=== PATIENT | male | born 1940 | race Caucasian/White ===

== ENCOUNTER 2018-09-28 18:51 | Emergency (ER) | payer MEDICARE, OTHER ==
--- NOTE | 2018-09-28 19:05 | ED Physician Documentation ---
Fall - HISTORIAN Historian: patient - HPI Stated Complaint: fell at long-term - was non responsive Chief Complaint: Fall Onset: just prior to arrival Where: home Associated Symptoms:: prolonged (minutes) (2 daughter thinks ) Location of Pain/Injury: head, face Injury to Right Extremity: none Injury to Left Extremity: none Further Comments: yes (She states he is on hospice due to dementia and she is worried he has a head injury after fall at long-term and she did not witness the fall but they heard a loud noise and he was on the floor non responsive for what she feels was 1.5 to 2 min and then when he did wake she feels he is less responsive.) - ROS CONST: no problems - PAST HX Past History: other (dementia ) Immunizations: UTD Allergies/Adverse Reactions: Allergies Allergy/AdvReac Type Severity Reaction Status Date / Time No Known Allergies Allergy Verified 09/28/18 19:40 Home Medications: Ambulatory Orders Medication Instructions Recorded Bisacodyl [Women's Laxative] 5 mg PO BID PRN 09/28/18 Haloperidol Lactate [Haldol] 5 mg PO PM 09/28/18 Hyoscyamine Sulfate [Anaspaz] 2 tab PO Q1 PRN 09/28/18 LORazepam [Ativan] 0.5 mg PO Q1 PRN 09/28/18 LORazepam [Ativan] 0.5 tab PO BID 09/28/18 Morphine Sulfate 5 ml PO Q1 PRN 09/28/18 Nutritional Supplement [Resource 30 ml PO TID 09/28/18 2.0] Valproic Acid (As Sodium Salt) 5 ml PO BID 09/28/18 [Valproic Acid] fentaNYL 12 MCG [Duragesic] 1 patch TOP Q72 09/28/18 - SOCIAL HX Smoking History: non-smoker Alcohol Use: none Drug Use: none - FAMILY HX Family History: none - REVIEWED ASSESSMENTS Nursing Assessment Reviewed: Yes Vitals Reviewed: Yes Procedures Wound Location: head Wound's Depth, Shape: superficial Wound Explored: clean Wound Repaired With: steri-strips, Dermabond (2 cm lac on left side of scalp ) Progress - Progress Progress: 2000: discussed read with radiologist DG 2001: Discussed results with daughter - hospice nurse at bedside. She would like time to discuss options. DG 2009: Daughter would like to take pt home to long-term. Hospice nurse is aware and orders are in place. They are agreeable to him returning. DG 2011: Daughter is asking for him to have pain med DG 2029: dermabond applied to laceration - full body inventory for any other possible injuries - nothing discovered DG ED Results Lab/Radiology - Orders Orders: ED Orders Category Date Time Status CT BRAIN W/O CONTRAST Stat Exams 09/28/[address] C-SPINE W/O CONTRAST Stat Exams 09/28/[address] MAXILLOFACIAL W/O DYE Stat Exams 09/28/18 Ordered CBC/PLATELET/DIFF Stat Lab 09/28/18 18:53 Ordered CMP Stat Lab 09/28/18 18:53 Ordered PT-INR Routine Lab 09/28/18 Ordered Fall Physical Exam - Physical Exam General Appearance: no acute distress, alert Head: trauma (facial swelling and bruise ) Neck: non-tender Eye: unequal pupils Resp/CVS: chest non-tender, breath sounds nml, no resp. distress, heart sounds nml. No: rib tenderness Abdomen: soft, no distension Neuro: other (alert and not appropriate verbal response which daughter states is normal although at times he does talk ) Skin: color nml Back: normal inspection Extremities: atraumatic Joint: painful (with attempt to stand ) Discharge Clincal Impression: Subdural bleeding Referrals: Dennis Parker DO [Primary Care Provider] - 2 Days Comments: He will return to long-term with hospice over sight DG Condition: Serious Disposition: 01 HOME, SELF-CARE Decision to Admit: NO Date of Decison to Admit: 09/28/18 Decision Time: 20:30
[2018-09-28] MEDS: MORPHINE SULFATE 10 MG/ML VIAL IV ONE (20:52)
[2018-09-28] MEDS: MORPHINE SULFATE 4 MG/ML VIAL ONE (20:53)
[2018-09-28 21:11] VITALS: BP 104/60
--- NOTE | 2018-09-29 05:37 | Diagnostic Imaging Report ---
TATIANA NESS [facility] [address] [facility] [address] [place], [place]. [address] Report Submission Date: Sep 28, 2018 8:05:03 PM CDT Patient Study Name: MANDEEP MAURER Date: Sep 28, 2018 7:06:24 PM CDT Modality Type: CT Gender: M Description: CT C-SPINE W/O CONTRAS : 44 Institution: [facility] Physician: TATIANA NESS EXAMINATION: CT C-SPINE W/O CONTRAS HISTORY: FALL. UNRESPONSIVE TECHNIQUE: CT of the cervical spine was performed without contrast according to standard protocol. COMPARISON: None FINDINGS: The alignment is normal. Vertebral bodies are normal in height without evidence of acute fracture. The craniocervical junction is normal. 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 There is mild spinal canal stenosis at C4/C5. 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 There is paraseptal emphysema in the lung apices. Please see the separate reports from the concurrent CT head and CT face for additional findings. IMPRESSION: No evidence of acute fracture in the cervical spine. Electronically signed on Sep 28, 2018 8:05:03 PM CDT by: Erik MAYO
--- NOTE | 2018-09-29 05:37 | Diagnostic Imaging Report ---
TATIANA NESS [facility] [address] [facility] [address] [place], [place]. [address] Report Submission Date: Sep 28, 2018 8:01:03 PM CDT Patient Study Name: MANDEEP MAURER Date: Sep 28, 2018 7:02:40 PM CDT Modality Type: CT Gender: M Description: CT MAXILLOFACIAL W/O D : 44 Institution: [facility] Physician: TATIANA NESS EXAMINATION: CT MAXILLOFACIAL W/O D HISTORY: FALL. UNRESPONSIVE TECHNIQUE: CT of the maxillofacial bones, orbits, and paranasal sinuses was performed without contrast according to standard protocol. COMPARISON: None FINDINGS: There is a comminuted fracture of the left zygomatic arch. There are additional fractures of the left orbital roof, inferior orbital rim/wall, and anterior and posterolateral saeed of the left maxillary sinus, consistent with a zygomaticomaxillary complex type fracture. There is a left nasal bone fracture. There is blood in the left maxillary sinus. There is left periorbital soft tissue swelling. There is no evidence of globe rupture or retrobulbar hematoma. The hard palate, mandible, and temporomandibular joints appear normal. The mastoid air cells are clear. Please see the separate report from the concurrent CT head for intracranial findings. IMPRESSION: 1. Left zygomaticomaxillary complex type fracture without evidence of globe rupture or retrobulbar hematoma. 2. Left nasal bone fracture. Electronically signed on Sep 28, 2018 8:01:03 PM CDT by: Erik MAYO
--- NOTE | 2018-09-29 05:38 | Diagnostic Imaging Report ---
LOYDA BROWN [facility] [address] [facility] [address] [place], [place]. [address] Report Submission Date: Sep 28, 2018 8:00:39 PM CDT Patient Study Name: MANDEEP MAURER Date: Sep 28, 2018 6:58:33 PM CDT Modality Type: CT Gender: M Description: CT BRAIN W/O CONTRAST : 42 Institution: [facility] Physician: LOYDA BROWN EXAMINATION: CT BRAIN W/O CONTRAST HISTORY: FALL. UNRESPONSIVE TECHNIQUE: CT of the head was performed without contrast according to standard protocol. COMPARISON: None FINDINGS: There are thin bilateral cerebral convexity subdural hematomas. A component of subdural hematoma is also seen along the falx anteriorly and posteriorly. In addition, there is small volume subarachnoid hemorrhage along the right frontal lobe near the vertex, anteriorly, and near the Sylvian fissure. There is no evidence of intraventricular extension. There is mild diffuse cerebral volume loss with associated ex vacuo ventricular dilatation. The basilar cisterns are patent. No significant mass effect or midline shift is seen. The brumfield-white matter differentiation is normal. Please see the separate report from the concurrent CT face for additional findings in the face. IMPRESSION: Thin bilateral cerebral convexity subdural hematomas and right frontal subarachnoid hemorrhage without evidence of intraventricular extension or internal brain herniation. The above findings were discussed with Loyda Brown NP by Dr. Kang at the time of this dictation. Electronically signed on Sep 28, 2018 8:00:39 PM CDT by: Erik MAYO
== END 2018-09-28 21:15 | disposition home or self-care (01) ==
LOC: ED 18:51
DX: S06.5X9A Traumatic subdural hemorrhage with loss of consciousness of unspecified duration, initial encounter (principal); S01.01XA Laceration without foreign body of scalp, initial encounter; W19.XXXA Unspecified fall, initial encounter; Y93.9 Activity, unspecified; Y92.129 Unspecified place in nursing home as the place of occurrence of the external cause
CPT/HCPCS: 12001; 70450; 70486; 72125; 96374; 99284; 99285; J2270; 80053